=== PATIENT | male | born 1990 | race Caucasian/White ===

== ENCOUNTER 2018-12-26 08:36 | Emergency (ER) | payer OTHER, SELFPAY ==
[2018-12-26 08:44] VITALS: BP 130/96; PULSE 80; RESP 15; TEMP 36.8; O2SAT 98; BMI 25.4
--- NOTE | 2018-12-26 09:00 | ED.GIBLEED ---
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 He was on duty at 3 a.m. yesterday. He developed diarrhea and lower abdominal cramping. He had multiple bouts of bloody diarrhea. He passed bright red blood. He is having no abdominal pain, and no perianal pain. He developed bright red blood bleeding again this morning, he has pictures of blood in the toilet. He has not been on NSAIDs. He has no history of PUD or upper GI bleeding. He has had no weight loss, fever or night sweats. He has no family history of inflammatory bowel disease, polyps or colon cancer. However there are multiple family members with a family history is of a variety of cancers. Related Data Home Medications Medication Instructions Recorded Confirmed fluticasone [Flonase Allergy 1 QDAYP PRN #0 04/09/17 Relief] pseudoephedrine HCl PO Q6HP PRN #0 04/09/17 Allergies Allergy/AdvReac Type Severity Reaction Status Date / Time cetirizine [From [facility]] Allergy Unknown Verified 12/26/18 08:44 Review of Systems Review of Systems ROS Unobtainable: All systems reviewed & are unremarkable except as noted in HPI and below Constitutional Denies chills, Denies fever(s), Denies lethargy and Denies weakness ENT Ears, Nose, Mouth, and Throat: Denies dizziness, Denies neck pain and Denies sore throat Cardiovascular Denies chest pain, Denies irregular heart rhythm, Denies lightheadedness, Denies palpitations, Denies dyspnea, Denies dyspnea on exertion and Denies orthopnea Respiratory Denies cough, Denies dyspnea, Denies dyspnea on exertion and Denies wheezing Gastrointestinal Gastrointestinal: Denies abdominal pain, Denies change in bowel habits, Reports change in stool character, Denies constipation, Denies cramping, Denies diarrhea, Denies nausea, Denies vomiting and Reports other (Bright red blood per rectum) Musculoskeletal Denies back pain and Denies neck pain Integumentary/Breasts Denies erythema and Denies rash Neurologic Denies dizziness and Denies weakness Endocrine Denies palpitations Allergic/Immunologic Denies wheezing PFSH Medical History Sleep apnea (Acute) Surgical History No pertinent past surgical history (Acute) Family History Other Cancer Social History Smoking Status: Never smoker Family History Other Cancer Social History Smoking Status: Never smoker Exam Initial Vital Signs Initial Vital Signs: Vital Signs Temperature 98.2 F 12/26/18 08:44 Pulse Rate 80 12/26/18 08:44 Respiratory Rate 15 12/26/18 08:44 Blood Pressure 130/96 H 12/26/18 08:44 Pulse Oximetry 98 12/26/18 08:44 Const General: cooperative and well developed Nutritional Appearance: well nourished Orientation: alert, awake, oriented x3 and not confused HENMT Head: normocephalic and atraumatic Ears: external ears normal and TM's normal bilaterally Nose: external nose normal and No nasal discharge Face and sinus: sinuses nontender, face symmetric, no sinus tenderness and No dry mucous membranes Mouth: oral mucosae normal and moist mucous membranes Teeth and gingiva: dentition normal Throat: tonsils normal and uvula midline Eyes Conjunctivae: other (Pale conjunctiva) Neck Neck: trachea midline, supple and No lymphadenopathy Resp Effort & Inspection: normal respiratory effort, able to speak in complete sentences, no respiratory distress and no use of accessory muscles Auscultation: clear to auscultation bilaterally, no rales, no rhonchi and no wheezes Cardio Rate: regular rate Rhythm: regular rhythm Heart Sounds: no click, no gallops, no murmurs and no rubs Pulses: normal peripheral pulses GI Inspection: non-distended Palpation: soft, no hepatosplenomegaly, No guarding, No pulsatile mass and No tender Auscultation: normal bowel sounds Rectal Exam: visual inspection normal, normal sphincter tone, prostate normal, No fissure, heme positive stool, No hemorrhoids and No mass Back/Spine/Pelvis Back: normal to inspection Skin General: no rashes or lesions noted, No jaundice and No petechiae Psych Appearance: grossly normal Course Orders Ordered: Discontinued Medications Sodium Chloride (Normal Saline 0.9%) 1,000 mls @ 150 mls/hr IV CONT PRIYA Last Infusion: 12/26/18 11:42 Dose: 0 mls/hr Admin: 12/26/18 09:35 Dose: 150 mls/hr Vital Signs - 8 hr 12/26/18 08:44 12/26/18 10:19 Temperature 98.2 F Pulse Rate 80 76 Respiratory Rate 15 16 Blood Pressure 130/96 H Blood Pressure [Left Arm] 107/80 Pulse Oximetry 98 100 MDM - GI Bleed Lab Data Result diagrams: 12/26/18 09:31 12/26/18 09:53 Lab Results 12/26/18 12/26/18 12/26/18 Range/Units 09:31 09:53 09:53 WBC 8.9 (4.5-11.0) X10^3/uL RBC 5.08 (4.5-5.9) X10^6/uL Hgb 15.8 (13.5-17.5) g/dL Hct 45.5 (41-53) % MCV 89.5 (80-100) fL MCH 31.1 (26-34) PG MCHC 34.8 (30-36) % RDW 13.5 (11.6-14.8) % Plt Count 265 (150-400) X10^3/uL Neut % (Auto) 68.7 (50-75) % Lymph % (Auto) 23.3 L (25-40) % [place] % (Auto) 5.8 (3-14) % Eos % (Auto) 1.5 L (2-4) % Baso % (Auto) 0.7 (0-2) % Neut # (Auto) 6100 (4480-8348) /uL Lymph # (Auto) 2100 (9781-1039) /uL [place] # (Auto) 500 (0-900) /uL Eos # (Auto) 100 (0-450) /uL Baso # (Auto) 100 (0-100) /uL PT 12.9 H (10.1-12.7) SECONDS INR 1.1 (0.9-1.3) APTT 32 (26.4-36.2) SECONDS Sodium 139 (137-145) mmol/L Potassium 4.1 (3.4-5.1) mmol/L Chloride 101 (98-107) mmol/L Carbon Dioxide 28 (22-32) mmol/L BUN 14 (9-20) mg/dL Creatinine 0.80 (0.66-1.25) mg/dL Estimated GFR > 60.0 (>60) mL/min BUN/Creatinine Ratio 17.5 (6-22) Glucose 88 (70-100) mg/dL Calcium 9.1 (8.4-10.2) mg/dL Total Bilirubin 0.6 (0.2-1.3) mg/dL AST 21 (17-59) IU/L ALT 36 (21-72) IU/L Alkaline Phosphatase 48 (38-126) U/L Total Protein 7.5 (6.3-8.2) g/dL Albumin 4.4 (3.5-5.0) g/dL Globulin 3.1 (1.7-4.1) g/dL Albumin/Globulin Ratio 1.4 (1.0-2.8) Discharge Plan Departure Patient Disposition: Home Clinical Impression: Acute lower gastrointestinal bleeding Discharge Date/Time: 12/26/18 11:44 Interventions: ED Discharge Assessment Last Done: 12/26/18 11:43 Instructions: Gastrointestinal Bleeding Activity Restrictions/Additional Instructions: No work for 48 hours. You should be on a bland diet. Contact her local [facility] doctor, you need a colonoscopy. I will give you contact information for our local surgery Department that can do the colonoscopy. Workout implement between her doctor and the [facility] office. Return to the ER if the situation is significantly worse. Prescriptions: No Action pseudoephedrine HCl 30 mg tablet PO Q6HP PRNQty: 0 RF: 0 fluticasone [Flonase Allergy Relief] 9.9 ML spray,suspension 1 QDAYP PRNQty: 0 RF: 0 Referrals: Devon Cardoza MD [Physician] - Abdon Damon MD [Primary Care Provider] - Stand Alone Forms: Work Release Note
[2018-12-26] MEDS: SODIUM CHLORIDE 0.9% 1,000 ML 150 ML IV (09:35)
[2018-12-26 09:42] LABS: Add Manual Diff / Slide Review NO; Basophils Absolute Auto 100 /uL (0-100); Basophils Percent Auto 0.7 % (0-2); Eosinophils Absolute Auto 100 /uL (0-450); Eosinophils Percent Auto 1.5 % (2-4); Hematocrit 45.5 % (41-53); Hemoglobin 15.8 g/dL (13.5-17.5); Lymphocytes Absolute Auto 2100 /uL (1100-4500); Lymphocytes Percent Auto 23.3 % (25-40); Mean Corpuscular HGB Conc 34.8 % (30-36); Mean Corpuscular Hemoglobin 31.1 PG (26-34); Mean Corpuscular Volume 89.5 fL (80-100); Monocytes Absolute Auto 500 /uL (0-900); Monocytes Percent Auto 5.8 % (3-14); Neutrophils Absolute Auto 6100 /uL (1500-7000); Neutrophils Percent Auto 68.7 % (50-75); Platelet Count 265 X10^3/uL (150-400); Red Blood Cell Count 5.08 X10^6/uL (4.5-5.9); Red Cell Distribution Width 13.5 % (11.6-14.8); White Blood Cell Count 8.9 X10^3/uL (4.5-11.0)
[2018-12-26 10:10] LABS: INR 1.1 (0.9-1.3); Prothrombin Time 12.9 SECONDS (10.1-12.7)
[2018-12-26 10:13] LABS: PTT Partial Thromboplastin Tim 32 SECONDS (26.4-36.2)
[2018-12-26 10:19] VITALS: BP 107/80; PULSE 76; RESP 16; O2SAT 100
[2018-12-26 10:26] LABS: Alanine Aminotransferase 36 IU/L (21-72); Albumin 4.4 g/dL (3.5-5.0); Albumin Globulin Ratio 1.4 (1.0-2.8); Alkaline Phosphatase 48 U/L (38-126); Aspartate Aminotransferase 21 IU/L (17-59); BUN Creatinine Ratio 17.5 (6-22); Bilirubin Total 0.6 mg/dL (0.2-1.3); Blood Urea Nitrogen 14 mg/dL (9-20); Calcium 9.1 mg/dL (8.4-10.2); Carbon Dioxide 28 mmol/L (22-32); Chloride 101 mmol/L (98-107); Estimated Glomerular Filt Rate > 60.0 mL/min (>60); Globulin 3.1 g/dL (1.7-4.1); Glucose 88 mg/dL (70-100); HEMOLYSIS < 15 (0-50); Potassium 4.1 mmol/L (3.4-5.1); Sodium 139 mmol/L (137-145); Total Protein 7.5 g/dL (6.3-8.2)
== END 2018-12-26 11:44 | disposition home or self-care (01) ==
PROVIDERS: Emergency Provider Emergency Medicine; PCP Family Medicine
DX: K92.2 Gastrointestinal hemorrhage, unspecified (principal)
CPT/HCPCS: 36415; 36591; 80053; 85025; 85610; 85730; 96360; 96361; 99283; 99284

== ENCOUNTER 2018-12-30 09:33 | Day surgery (SDC) | payer OTHER, SELFPAY ==
--- NOTE | 2018-12-30 | PATH_ITS ---
[facility] Accession Number: [id number] . 01 Material submitted: . BIOPSY COLON AT 30 . 02 Diagnosis: Colon at 30 cm, Biopsy: Colonic mucosa with mild nonspecific subepithelial hemorrhage and congestion. Negative for active inflammation, granulomata, dysplasia or malignancy. MRV/01/02/2019 . 02 Comment: The findings are nonspecific, but could be procedure related. . 02 Electronically signed: . Dylon Fountain MD, PhD, Pathologist NPI- [id number] . 01 Gross description: . BIOPSY COLON AT 30: Received in formalin are multiple fragment(s) of andre, soft tissue measuring 1.5 x 0.6 x 0.3 cm in aggregate submitted entirely in 1 cassette(s) /CKI /CKI . 02 Pathologist provided ICD-10: R19.4 . 02 CPT . 162976 Performed at: 01 [facility] [address], [place], [place] [id number] MD Michael Cesar MD Phone: [phone] Performed at: 02 [facility] [address] [place], [place] [id number] MD Saida Breen MD Phone: [phone]
[2018-12-30 09:47] VITALS: BP 126/86; PULSE 92; RESP 15; TEMP 36.3; O2SAT 98; BMI 26.2
[2018-12-30] MEDS: SODIUM CHLORIDE 0.9% 1,000 ML 200 ML IV (10:25)
--- NOTE | 2018-12-30 11:26 | PM.PREOP ---
Pre-operative Note Interval Note History & Physical reviewed/Exam performed by Physician: Yes Changes to H&P: No ASA Class (for procedural sedation): I
[2018-12-30] MEDS: fentaNYL 250 MCG/5 ML INJ IV (11:52)
[2018-12-30] MEDS: MIDAZOLAM 5 MG/5 ML VIAL IV (11:52)
[2018-12-30 12:04] VITALS: BP 105/69; PULSE 95; RESP 13; TEMP 36.3; O2SAT 95
--- NOTE | 2018-12-30 12:04 | PM.OP.ENDO ---
Operative Date/Time/Diagnoses Date of procedure: 12/30/18 Time of procedure: 12:04 Pre-op diagnosis: Rectal bleeding Post-op diagnosis: same (Sigmoid colitis) Procedure & Clinicians Study performed: Colonoscopy with cold biopsy Same procedure as scheduled: Yes Indications: Diagnostics/potentially therapeutic Surgeon: Samuel Dent Procedure Notes SCOAP/Timeout: Performed Procedure in detail: The patient was placed in the left lateral decubitus position and underwent IV sedation directed by the surgeon consisting of fentanyl and Versed. Digital exam was unremarkable. His prostate is flat.. The scope was inserted and advanced through the rectum into the sigmoid, descending, transverse, and ascending colon. I noted an area in the sigmoid colon that was markedly inflamed and fairly discrete. The remainder of the colon was slightly hyperemic.. The cecum was reached identified by the ileocecal valve and the appendiceal opening. The ileocecal valve was successfully cannulated. The terminal ileum was normal in appearance. The scope was gradually brought out. No Polyps were found. As I came through the inflamed segment of the sigmoid which is located from about 25-35 cm I took biopsies randomly. There were no diverticuli seen. The scope ultimately was retroflexed in the rectum. The appearance was remarkable for small hemorrhoids but there was no evidence of recent bleeding or ulceration. I would not recommend banding them.. The scope was removed and the patient tolerated the procedure well. The prep was excellent. Scope withdrawal time: Nine and 0.5 min Sedation minutes: 22 Findings: colitis (Localized) and internal hemorrhoids (Small and unlikely to be the source of his bleeding.) Specimen(s): other (Inflamed sigmoid biopsies) Complications: none Recommendations: Will call with biopsy results Follow up: as needed Disposition: PACU
[2018-12-30 12:09] VITALS: BP 113/68; PULSE 95; RESP 14; O2SAT 95
[2018-12-30 12:14] VITALS: BP 123/77; PULSE 98; RESP 12; TEMP 36.5; O2SAT 97
[2018-12-30 12:20] VITALS: BP 117/74; PULSE 99; RESP 17; TEMP 36.6; O2SAT 98
[2018-12-30 12:52] VITALS: BP 115/73; PULSE 93; RESP 16; TEMP 37.1; O2SAT 96
== END 2018-12-30 12:57 | disposition home or self-care (01) ==
PROVIDERS: PCP Family Medicine; Visit Provider Specialist
PROC: 0DJD8ZZ Inspection of Lower Intestinal Tract, Via Natural or Artificial Opening Endoscopic (ICD-10-PCS; CPT 45378; principal; 2018-12-30 10:45)
DX: K52.9 Noninfective gastroenteritis and colitis, unspecified (principal); G47.30 Sleep apnea, unspecified; K64.8 Other hemorrhoids
CPT/HCPCS: 45380; 88305; 99152; J2250; J3010

== ENCOUNTER → 2019-03-02 09:39 | Outpatient (CLI) | payer OTHER, SELFPAY | PROVIDERS: PCP Family Medicine; Visit Provider Specialist ==

== ENCOUNTER → 2019-03-02 17:36 | Outpatient (CLI) | payer OTHER, SELFPAY ==
[2019-03-02 20:50] LABS: Adenovirus F 40/41 Not Detected (Not Detect); Astrovirus Not Detected (Not Detect); Campylobacter Not Detected (Not Detect); Clostridium difficile toxin AB Not Detected (Not Detect); Cryptosporidium Not Detected (Not Detect); Cyclospora cayetanensis Not Detected (Not Detect); Entamoeba histolytica Not Detected (Not Detect); Enteroaggregative E.coli Not Detected (Not Detect); Enteropathogenic E.coli Not Detected (Not Detect); Enterotoxigenic E.coli It/st Not Detected (Not Detect); Giardia lamblia Not Detected (Not Detect); Norovirus GI/GII Not Detected (Not Detect); Plesiomonsa shigelloides Not Detected (Not Detect); Rotavirus A Not Detected (Not Detect); Salmonella Not Detected (Not Detect); Sapovirus Not Detected (Not Detect); Shiga-like toxin-prod E.coli Not Detected (Not Detect); Shigella/Enteroinvasive E.coli Not Detected (Not Detect); Vibrio Not Detected (Not Detect); Vibrio cholerae Not Detected (Not Detect); Yersinia enterocolitica Not Detected (Not Detect)
== END ==
PROVIDERS: Visit Provider Specialist
DX: R19.7 Diarrhea, unspecified (principal)
CPT/HCPCS: 87507

== ENCOUNTER → 2021-01-30 16:49 | Outpatient (CLI) | payer OTHER, SELFPAY ==
[2021-01-30 17:19] LABS: Add Manual Diff / Slide Review NO; Basophils Absolute Auto 100 /uL (0-100); Basophils Percent Auto 0.9 % (0-2); Eosinophils Absolute Auto 400 /uL (0-450); Eosinophils Percent Auto 5.3 % (2-4); Hematocrit 42.9 % (41-53); Hemoglobin 15.1 g/dL (13.5-17.5); Lymphocytes Absolute Auto 3000 /uL (1100-4500); Lymphocytes Percent Auto 42.2 % (25-40); Mean Corpuscular HGB Conc 35.1 % (30-36); Mean Corpuscular Hemoglobin 31.7 PG (26-34); Mean Corpuscular Volume 90.2 fL (80-100); Monocytes Absolute Auto 500 /uL (0-900); Monocytes Percent Auto 6.4 % (3-14); Neutrophils Absolute Auto 3200 /uL (1500-7000); Neutrophils Percent Auto 45.2 % (50-75); Platelet Count 295 X10^3/uL (150-400); Red Blood Cell Count 4.75 X10^6/uL (4.5-5.9); Red Cell Distribution Width 13.4 % (11.6-14.8); White Blood Cell Count 7.2 X10^3/uL (4.5-11.0)
[2021-01-30 17:44] LABS: Alanine Aminotransferase 32 IU/L (<50); Albumin 4.6 g/dL (3.5-5.0); Albumin Globulin Ratio 1.5 (1.0-2.8); Alkaline Phosphatase 55 U/L (38-126); Aspartate Aminotransferase 32 IU/L (17-59); Bilirubin Total 0.3 mg/dL (0.2-1.3); Blood Urea Nitrogen 15 mg/dL (9-20); C-Reactive Protein Quant 1.5 mg/dL (<1.0); Calcium 9.7 mg/dL (8.4-10.2); Carbon Dioxide 23 mmol/L (22-32); Chloride 105 mmol/L (98-107); Estimated Glomerular Filt Rate > 60.0 mL/min (>60); Glucose 94 mg/dL (70-100); HEMOLYSIS 16 (0-50); Potassium 4.1 mmol/L (3.4-5.1); Sodium 137 mmol/L (137-145); Total Protein 7.6 g/dL (6.3-8.2)
[2021-01-30 18:08] LABS: Erythrocyte Sedimentation Rate 7 MM/HR (0-15)
== END ==
PROVIDERS: PCP Family Medicine; Referring Provider Family Medicine; Visit Provider Family Medicine
DX: K52.9 Noninfective gastroenteritis and colitis, unspecified (principal); K92.1 Melena
CPT/HCPCS: 36415; 80053; 85025; 85651; 86140

== ENCOUNTER → 2021-01-31 13:12 | Outpatient (CLI) | payer OTHER, SELFPAY ==
[2021-01-31 14:45] LABS: Occult Blood 1 Negative (Negative); Occult Blood 2 Negative (Negative); Occult Blood 3 Negative (Negative)
[2021-02-04 15:13] LABS: Calprotectin, Stool 56 ug/g (0-120); Lactoferrin, Fecal Quant 7.67 ug/mL(g) (0.00-7.24)
== END ==
PROVIDERS: PCP Family Medicine; Referring Provider Family Medicine; Visit Provider Family Medicine
DX: K52.9 Noninfective gastroenteritis and colitis, unspecified (principal); K92.1 Melena
CPT/HCPCS: 82270; 83631; 83993

== ENCOUNTER → 2021-02-20 15:02 | Outpatient (CLI) | payer OTHER, SELFPAY ==
[2021-02-20 15:58] LABS: COVID19 -Nasal RAPID Negative (Negative)
== END ==
PROVIDERS: PCP Family Medicine; Visit Provider Specialist
DX: Z20.822 Contact with and (suspected) exposure to COVID-19 (principal)
CPT/HCPCS: 87635; C9803

== ENCOUNTER 2021-02-21 06:35 | Day surgery (SDC) | payer OTHER, SELFPAY ==
--- NOTE | 2021-02-21 | PATH_ITS ---
[facility] Accession Number: [id number] . 01 Material submitted: . body - 20-30CM REDDENED MUCOSA . 02 Diagnosis: Colon, 20-30 cm, Biopsies: Colonic mucosa with nonspecific hemorrhage and congestion; please see comment. Negative for active or microscopic colitis. Negative for granulomata, dysplasia or malignancy. [facility] 02/27/2021 1209 Local . 02 Comment: The findings in the colon biopsy are nonspecific, but bowel preparation artifact is considered likely. . 02 Electronically signed: . Dylon Fountain MD, PhD, Pathologist NPI- [id number] . 01 Gross description: . The specimen is received in formalin, labeled 25-30 cm reddened mucosa, and consists of multiple andre-pink fragments of soft tissue measuring 1.0 x 0.8 x 0.2 cm in aggregate. The specimen is entirely submitted in cassette A1. ([id number]) /[facility] 02/22/2021 1744 Local . 02 Pathologist provided ICD-10: K92.1 . 02 CPT . 896578 Performed at: 01 [facility] [address], [place], [place] [id number] MD Michael Cesar MD Phone: [phone] Performed at: 02 [facility] [address] [place], [place] [id number] MD Saida Breen MD Phone: [phone]
[2021-02-21 07:01] VITALS: BP 138/87; PULSE 85; RESP 13; TEMP 36.6; O2SAT 100
[2021-02-21] MEDS: LACTATED RINGERS 1,000 ML 42 ML IV (07:10)
--- NOTE | 2021-02-21 07:37 | PM.PREOP ---
Pre-operative Note COVID-19 COVID-19 status: Negative Result date/Date tested (Pos, Neg/Pending): 02/20/21 Interval Note History & Physical reviewed/Exam performed by Physician: Yes Changes to H&P: No ASA Class (for procedural sedation): I
[2021-02-21] MEDS: fentaNYL 250 MCG/5 ML INJ IV (07:58)
[2021-02-21] MEDS: MIDAZOLAM 5 MG/5 ML VIAL IV (07:58)
--- NOTE | 2021-02-21 08:14 | PM.OP.ENDO ---
Operative Date/Time/Diagnoses Date of procedure: 02/21/21 Time of procedure: 08:14 Pre-op diagnosis: Rectal bleeding Post-op diagnosis: same (Cause unclear. Discrete area of the sigmoid from 20-30 cm mildly inflamed. No bleeding site. Biopsies taken.) Procedure & Clinicians Study performed: Colonoscopy with cold biopsy Same procedure as scheduled: Yes Indications: Rectal bleeding Surgeon: Samuel Dent Procedure Notes SCOAP/Timeout: Performed Procedure in detail: The patient was placed in the left lateral decubitus position and underwent IV sedation directed by the surgeon consisting of fentanyl and Versed. Digital exam was unremarkable. Prostate is flat.. The scope was inserted and advanced through the rectum into the sigmoid, descending, transverse, and ascending colon. Patient was noted to have a discrete area of mild inflammation in the sigmoid.. The cecum was reached identified by the ileocecal valve and the appendiceal opening. The ileocecal valve was successfully cannulated. The terminal ileum was normal in appearance. The scope was gradually brought out. No Polyps were found. Biopsies were taken in the area of the sigmoid that was mildly inflamed. There were diverticulosis noted in this region. The scope ultimately was retroflexed in the rectum. The appearance was normal. There was no evidence of hemorrhoids.. The scope was removed and the patient tolerated the procedure well. Scope withdrawal time: 6 minutes (7 total) Sedation minutes: 17 Findings: diverticulosis Specimen(s): other (Biopsies sigmoid) Complications: none Post-procedure Plan for aftercare: Will follow-up after biopsies Disposition: PACU
[2021-02-21 08:17] VITALS: BP 130/63; PULSE 83; RESP 15; TEMP 36.8; O2SAT 93
[2021-02-21 08:18] VITALS: PULSE 87; RESP 13; O2SAT 97
[2021-02-21 08:23] VITALS: BP 119/62; PULSE 80; RESP 20; O2SAT 94
[2021-02-21 08:26] VITALS: BP 111/68; PULSE 100; RESP 14; TEMP 36.8; O2SAT 96
== END 2021-02-21 09:58 | disposition home or self-care (01) ==
PROVIDERS: PCP Family Medicine; Referring Provider Family Medicine; Visit Provider Specialist
PROC: 0DJD8ZZ Inspection of Lower Intestinal Tract, Via Natural or Artificial Opening Endoscopic (ICD-10-PCS; CPT 45378; principal; 2021-02-21 07:45)
DX: K62.5 Hemorrhage of anus and rectum (principal); F41.9 Anxiety disorder, unspecified; G47.30 Sleep apnea, unspecified; K57.30 Diverticulosis of large intestine without perforation or abscess without bleeding
CPT/HCPCS: 45380; 99152; J2250; J3010

== ENCOUNTER → 2021-03-11 09:46 | Outpatient (CLI) | payer OTHER, SELFPAY ==
[2021-03-11 11:41] LABS: Alanine Aminotransferase 37 IU/L (<50); Albumin 4.6 g/dL (3.5-5.0); Albumin Globulin Ratio 1.4 (1.0-2.8); Alkaline Phosphatase 57 U/L (38-126); Aspartate Aminotransferase 30 IU/L (17-59); BUN Creatinine Ratio 25.6 (6-22); Bilirubin Total 0.5 mg/dL (0.2-1.3); Blood Urea Nitrogen 23 mg/dL (9-20); Calcium 9.7 mg/dL (8.4-10.2); Carbon Dioxide 22 mmol/L (22-32); Chloride 104 mmol/L (98-107); Estimated Glomerular Filt Rate > 60.0 mL/min (>60); Globulin 3.4 g/dL (1.7-4.1); Glucose 82 mg/dL (70-100); HEMOLYSIS < 15 (0-50); Potassium 4.2 mmol/L (3.4-5.1); Sodium 136 mmol/L (137-145)
[2021-03-11 12:06] LABS: Vitamin D 25 Hydroxy (D3) 30.7 ng/mL (30.0-100.0)
[2021-03-11 12:25] LABS: Vitamin B12 Reflex MMA if <400 439 pg/mL (239-931)
[2021-03-15 14:45] LABS: Percent Free Testosterone 2.54 % (1.50-4.20); Testosterone Free 8.84 ng/dL (5.00-21.00); Testosterone Total 347.9 ng/dL (264.0-916.0)
== END ==
PROVIDERS: PCP Family Medicine; Referring Provider Family Medicine; Visit Provider Family Medicine
DX: F41.9 Anxiety disorder, unspecified (principal); K64.8 Other hemorrhoids; K92.1 Melena; R19.7 Diarrhea, unspecified; N52.9 Male erectile dysfunction, unspecified
CPT/HCPCS: 80053; 82306; 82607; 84402; 84403

== ENCOUNTER → 2021-03-12 09:42 | Outpatient (CLI) | payer OTHER, SELFPAY | PROVIDERS: PCP Family Medicine; Referring Provider Family Medicine; Visit Provider Family Medicine | DX: K92.1 Melena (principal); Z53.8 Procedure and treatment not carried out for other reasons; R19.7 Diarrhea, unspecified; K64.8 Other hemorrhoids; F41.9 Anxiety disorder, unspecified ==

== ENCOUNTER → 2021-03-14 08:49 | Outpatient (CLI) | payer OTHER, SELFPAY ==
--- NOTE | 2021-03-14 08:51 | DI.CT.S_ITS ---
PROCEDURE: CT ABDOMEN PELVIS W CON INDICATIONS: ABDOMINAL PAIN TECHNIQUE: After the administration of oral and intravenous contrast, 5 mm thick sections acquired from the diaphragms to the symphysis. 5 mm thick coronal and sagittal reformats were performed. For radiation dose reduction, the following was used: automated exposure control, adjustment of mA and/or kV according to patient size. COMPARISON: None. FINDINGS: ABDOMEN: Lung bases: Normal. Heart: No significant findings. Liver: Hepatic steatosis. Gallbladder: Normal Bile ducts: Normal. Pancreas: Normal. Spleen: Normal. Adrenals: Nonspecific right adrenal calcification, chronic. Left adrenal gland unremarkable Kidneys and Ureters: Normal. Stomach and duodenum: Small bowel unremarkable. Bowel:. Moderate stool seen throughout the colon diffusely. There is long segment descending and sigmoid colonic mural thickening. There is minimal adjacent inflammatory stranding. Suboptimal evaluation secondary to decompressed/collapsed state. The rectum is decompressed and otherwise unremarkable. Colonic diverticulosis is seen without evidence of acute complication. Other: No free fluid or air. Abdominal nodes: Normal. Aorta and IVC: Normal in size. Ventral wall: Small fat containing periumbilical hernia PELVIS: Bladder: Normal. Inguinal region: No hernia. Pelvic nodes: Normal. Bones: No suspicious bony lesions. No vertebral body compression fractures. IMPRESSION: Long segment distal descending and sigmoid infectious or inflammatory colitis. Recommend clinical and laboratory correlation. Hepatic steatosis Incidental colonic diverticulosis Small fat containing periumbilical hernia Dictated by: Umer King M.D. on 03/14/2021 at 13:16 Approved by: Umer King M.D. on 03/14/2021 at 13:22
== END ==
PROVIDERS: PCP Family Medicine; Referring Provider Family Medicine; Visit Provider Family Medicine
DX: R10.9 Unspecified abdominal pain (principal); K92.1 Melena; F41.9 Anxiety disorder, unspecified; K64.8 Other hemorrhoids; R19.7 Diarrhea, unspecified; K76.0 Fatty (change of) liver, not elsewhere classified; K57.90 Diverticulosis of intestine, part unspecified, without perforation or abscess without bleeding; K42.9 Umbilical hernia without obstruction or gangrene
CPT/HCPCS: 74177